=== PATIENT | male | born 1975 | race Caucasian/White ===

== ENCOUNTER 2024-07-11 22:44 | Emergency (ER) | payer BC, SELFPAY ==
--- NOTE | 2024-07-11 | ECG_ITS ---
Test Reason : DIZZINESS Blood Pressure : */* mmHG Vent. Rate : 60 BPM Atrial Rate : 60 BPM P-R Int : 162 ms QRS Dur : 82 ms QT Int : 408 ms P-R-T Axes : 49 66 62 degrees QTcB Int : 408 ms Normal sinus rhythm Normal ECG No previous ECGs available Referred By: Generic ED Physician Electronically Signed By: JOSHUA ZARCO
--- NOTE | ~2024-07-11 | CT_ITS ---
CLINICAL HISTORY: dizzy, ? aphasia CT Head without contrast. CT angiography head and neck with contrast. 3D Postprocessing. Comparison: None Findings: HEAD CT: No intra-axial mass, midline shift, hydrocephalus, or acute hemorrhage. No significant atrophy-like change or white matter disease. Right maxillary sinus mucous retention cyst/polyp. Otherwise sinuses and mastoid air cells are clear. The orbits are unremarkable. No acute skull fracture. HEAD AND NECK CTA: Aortic arch and cervical great vessels are patent. Intracranial arteries are patent. No aneurysm or occlusion. No abnormal intracranial enhancement. The visualized thyroid gland is unremarkable. No cervical mass or fluid collection. Ground-glass opacities in lung apices could be artifactual. Lung apices otherwise clear. No acute fracture. IMPRESSION: 1. Noncontrast CT brain demonstrates no acute intracranial findings. 2. Patent head and neck CTA. This document has been electronically signed by: Indu Chauhan MD on 07/12/2024 04:55:04
[2024-07-11 22:52] VITALS: BP 120/83; PULSE 65; RESP 16; TEMP 36.6; O2SAT 99; BMI 25.1
[2024-07-11 23:21] LABS: MANUAL DIFF FLAG NO
[2024-07-11 23:23] LABS: Basophils Absolute Auto 0.1 X10*3/uL (0.0-0.2); Basophils Percent Auto 0.8 % (0-2); Eosinophils Absolute Auto 0.1 X10*3/uL (0.0-0.4); Eosinophils Percent Auto 1.8 % (0-4); Hematocrit 44.6 % (42.0-52.0); Hemoglobin 15.4 g/dl (14.0-18.0); Imm Gran Abs Auto 0.01 X10*3/uL (0.00-0.03); Imm Gran Pct Auto 0.1 % (0.0-0.4); Lymphocytes Absolute Auto 3.9 X10*3/uL (1.2-4.9); Lymphocytes Percent Auto 49.7 % (20-40); Mean Corpuscular HGB Conc 34.5 g/dl (31.0-36.0); Mean Corpuscular Hemoglobin 29.5 pg (27.0-33.0); Mean Corpuscular Volume 85.4 fL (80.0-98.0); Mean Platelet Volume 9.8 fL (9.4-12.4); Monocytes Absolute Auto 0.5 X10*3/uL (0.1-1.2); Monocytes Percent Auto 5.8 % (2-11); Neutrophils Absolute Auto 3.3 x10*3/uL (2.0-8.3); Neutrophils Percent Auto 41.8 % (45-73); Platelet Count 231 X10*3/uL (160-400); Red Blood Count 5.22 X10*6/uL (4.60-5.80); Red Cell Distribution Width 12.4 % (11.0-16.0); White Blood Count 7.8 X10*3/uL (4.8-10.8)
[2024-07-11 23:36] LABS: Alanine Aminotransferase 64 U/L (0-40); Albumin Level 4.3 g/dL (3.5-5.0); Alkaline Phosphatase 58 U/L (39-117); Anion Gap 9 (12-20); Aspartate Amino Transferase 30 U/L (5-37); Bilirubin Total 0.4 mg/dL (0.0-1.0); Blood Urea Nitrogen 16 mg/dL (9-16); Calcium 9.2 mg/dL (8.4-10.2); Carbon Dioxide 24 mmol/L (22-29); Chloride 113 mmol/L (96-108); Creatinine Clr Calc Pharmacy 133.7; Estimated Glomerular Filt Rate > 60; Glucose Random 106 mg/dL (60-115); Lipase 20 U/L (8-78); Magnesium 2.1 mg/dL (1.6-2.6); Potassium 3.8 mmol/L (3.3-5.1); Sodium 142 mmol/L (135-145); Total Protein 7.2 g/dL (6.5-8.0)
[2024-07-11 23:45] LABS: Troponin-I High Sensitivity < 2.7 ng/L (<3.5-35.0)
[2024-07-12] VITALS (8 sets, daily range): BP systolic 105–120; BP diastolic 68–76; PULSE 57–70; RESP 16–18; TEMP 36.6–37.1; O2SAT 95–100
--- NOTE | 2024-07-12 01:40 | PC.NURSE ---
Pt a&ox4, no signs of distress. Pt denies pain at this time, and reports lightheadedness Pts family at bedside answering questions. Pts vitals are stable. Plan of care ongoing.
--- NOTE | 2024-07-12 03:07 | ED_ITS ---
HPI - Dizziness General Chief Complaint: Dizziness Stated Complaint: feels like head rushes Time Seen by Provider: 07/12/24 01:46 Source: patient Limitations: no limitations History of Present Illness ED Provider: Elke Ramos PA-C HPI Narrative: 48-year-old otherwise healthy male presents with ?lightheaded sensations over the past 36 hours. Patient states when he has an episode he describes it as a ?head sampson?, as if he stood up too rapidly from a sitting position. Abrupt position change or rapid head movement does not trigger symptoms. Patient does not feel as if the room is spinning. When he has symptoms, there is no headache, he does not become nauseous. Patient denies recent cough or cold symptoms, nasal congestion, ear pressure or fever. The patient's , who is at bedside, explains that her has had 2 separate episodes over the past 2 days where he seems ?confused, as if he can not explain himself as he usually does?. Patient saw his primary care provider today and had lab studies. He was advised to come to the emergency department for further assessment. Related Data Allergies Allergy/AdvReac Type Severity Reaction Status Date / Time No Known Allergies Allergy Verified 07/11/24 22:54 Review of Systems 2 Review of Systems: Yes all other systems are reviewed and are negative Constitutional: Constitutional: Denies fatigue, Denies fever(s) and Denies headache(s) Eyes: Eyes: Denies change in vision ENT: Denies vertigo, Reports dizziness, Denies headache(s), Denies nasal congestion and Denies nasal discharge Neurologic: Denies vertigo, Reports dizziness and Denies headache(s) Endocrine: Endocrine: Denies fatigue [facility] Past Medical History Attestation statement: The following information was validated with the patient. Social History Social History Smoked in Last 30 Days: No Use of substances other than those prescribed or required for medical reasons: Yes Substance Use Type: Marijuana Do you have a plan to hurt others: No Plan Physical Exam 2 Vital Signs: Vital Signs: Last Vital Signs Temp 98.7 F 07/12/24 01:52 Pulse 70 07/12/24 02:07 Resp 16 07/12/24 01:52 BP 109/74 07/12/24 02:07 Pulse Ox 97 07/12/24 01:52 O2 Del Method Room Air 07/12/24 01:52 BMI result Body Mass Index 25.1 Const: Other: Alert, overall well-appearing Orientation/consciousness: patient oriented x3 Eyes: Other: No nystagmus Resp: Effort & Inspection: normal respiratory effort Cardio: Other: Normal peripheral perfusion Skin: Other: Warm dry no rash Neuro: Other: No ataxia General: patient oriented x3, gait normal, no focal motor deficits and CN's II-XI intact bilaterally Extrem: Other: Strength 5/5 bilateral upper and lower extremity Psych: Other: Calm cooperative NIH Stroke Scale Internal: Initial- Upon Arrival Level of Consciousness: Alert Level of Consciousness Questions: Answers both questions correctly Level of Consciousness Commands: Performs both tasks correctly Best Gaze: Normal Visual: No visual loss Facial Palsy: Normal Motor Arm (Right): No drift Motor Arm (Left): No drift Motor Leg (Right): No drift Motor Leg (Left): No drift Limb Ataxia: Absent Sensory: Normal Best Language: No aphasia Dysarthia: Normal Extinction and Inattention: No abnormality Score: 0 Course Course Course Narrative: We will need to sign out to night team pending imaging and final disposition Medical Decision Making Medical Decision Making MDM Narrative: 48-year-old otherwise healthy male presents with ?lightheaded sensations over the past 36 hours. Patient states when he has an episode he describes it as a ?head sampson?, as if he stood up too rapidly from a sitting position. Abrupt position change or rapid head movement does not trigger symptoms. Patient does not feel as if the room is spinning. When he has symptoms, there is no headache, he does not become nauseous. Patient denies recent cough or cold symptoms, nasal congestion, ear pressure or fever. The patient's , who is at bedside, explains that her has had 2 separate episodes over the past 2 days where he seems ?confused, as if he can not explain himself as he usually does?. Patient saw his primary care provider today and had lab studies. He was advised to come to the emergency department for further assessment. Problem: Paternal history of CVA early 50s History: Per patient I have considered the following differential diagnoses: CVA, TIA, vertigo, labyrinthitis, brain tumor , orthostatic hypotension Plan: There was concern for CVA/TIA, given what sounds like potential aphasia from what his explains. We will be ordering CT head and neck angiograms. The patient is asymptomatic at this time. Thought about inner ear pathology, however he is asymptomatic. Thought about vertigo, however his symptoms are not vertiginous in nature and there was no nystagmus on exam. The patient could have a brain lesion causing his symptoms. Thought about orthostatic hypotension, however there was no variation in our set of vitals, he is not feeling near syncopal when he has an episode of his ?head sampson?. I have independently reviewed the following tests: Labs: No leukocytosis, not anemic, no electrolyte abnormality CT brain: CT angio head and neck: Lab Data 07/11/24 23:16 07/11/24 23:16 Labs: Lab Results 07/11/24 Range/Units 23:16 WBC 7.8 (4.8-10.8) X10*3/uL RBC 5.22 (4.60-5.80) X10*6/uL Hgb 15.4 (14.0-18.0) g/dl Hct 44.6 (42.0-52.0) % MCV 85.4 (80.0-98.0) fL MCH 29.5 (27.0-33.0) pg MCHC 34.5 (31.0-36.0) g/dl RDW 12.4 (11.0-16.0) % Plt Count 231 (160-400) X10*3/uL MPV 9.8 (9.4-12.4) fL Immature Gran % (Auto) 0.1 (0.0-0.4) % Neut % (Auto) 41.8 L (45-73) % Lymph % (Auto) 49.7 H (20-40) % Kendall % (Auto) 5.8 (2-11) % Eos % (Auto) 1.8 (0-4) % Baso % (Auto) 0.8 (0-2) % Lymph # (Auto) 3.9 (1.2-4.9) X10*3/uL Kendall # (Auto) 0.5 (0.1-1.2) X10*3/uL Eos # (Auto) 0.1 (0.0-0.4) X10*3/uL Baso # (Auto) 0.1 (0.0-0.2) X10*3/uL Abs Immat Gran (auto) 0.01 (0.00-0.03) X10*3/uL Absolute Neuts (auto) 3.3 (2.0-8.3) x10*3/uL Absolute Nucleated RBC 0.000 (0.0-0.012) X10*3/uL Nucleated RBC % (auto) 0.0 (0.0-0.2) /100WBC Sodium 142 (135-145) mmol/L Potassium 3.8 (3.3-5.1) mmol/L Chloride 113 H (96-108) mmol/L Carbon Dioxide 24 (22-29) mmol/L Anion Gap 9 L (12-20) BUN 16 (9-16) mg/dL Creatinine 0.87 (0.5-1.4) mg/dL Estim Creat Clear Calc 133.7 Estimated GFR > 60 Random Glucose 106 (60-115) mg/dL Calcium 9.2 (8.4-10.2) mg/dL Magnesium 2.1 (1.6-2.6) mg/dL Total Bilirubin 0.4 (0.0-1.0) mg/dL AST 30 (5-37) U/L ALT 64 H (0-40) U/L Alkaline Phosphatase 58 (39-117) U/L Troponin I High Sens < 2.7 (<3.5-35.0) ng/L Total Protein 7.2 (6.5-8.0) g/dL Albumin 4.3 (3.5-5.0) g/dL Lipase 20 (8-78) U/L Discharge Plan Discharge Clinical Impression: Episodic lightheadedness Patient Disposition: Still a Patient
[2024-07-12] MEDS: iohexoL 350 MG/ML 100 ML INFUS..BTL 70 ML IV (03:37)
== END 2024-07-12 06:46 | disposition home or self-care (01) ==
PROVIDERS: Emergency Provider Emergency Medicine; PCP Nurse Practitioner
DX: R42 Dizziness and giddiness (principal)
CPT/HCPCS: 36415; 70496; 70498; 80053; 83690; 83735; 84484; 85025; 93005; 99284; 99285; Q9967

== ENCOUNTER → 2024-07-11 23:11 | Outpatient (BNV) | payer BC, SELFPAY | PROVIDERS: Emergency Provider Emergency Medicine; PCP Nurse Practitioner; Visit Provider Internal Medicine | DX: R42 Dizziness and giddiness (principal) | CPT/HCPCS: 93010 ==

== ENCOUNTER → 2024-07-12 02:46 | Outpatient (BNV) | payer BC, SELFPAY | PROVIDERS: Emergency Provider Emergency Medicine; PCP Nurse Practitioner; Visit Provider Specialist | DX: R42 Dizziness and giddiness (principal) | CPT/HCPCS: 70496; 70498 ==